=== PATIENT | male | born 1985 | race Hispanic/Latino ===

== ENCOUNTER 2016-12-26 16:19 | Inpatient (IN) | payer OTHER ==
[2016-12-26] MEDS ORDERED: Sodium Chloride 0.9% 1,000 ML IV STA (17:03)
--- NOTE | 2016-12-26 17:06 | ED PDOC ---
Syncope/Near Syncope/Dizziness Time Seen by Provider: 12/26/16 16:53 Chief Complaint (Nursing): Syncope Chief Complaint (Provider): Syncope History Per: Patient History/Exam Limitations: no limitations Onset/Duration Of Symptoms: Days (Today) Additional Complaint(s): Pt. with at a store and got light-headed and palpitations. He then passed out. States was sitting when this happened. Lasted few seconds and then remembers everyone around him. Paramedics came and released. Pt. came with friend. Pt. denies every having any chest pain, dyspnea, weakness, headaches, numbness, tingles at any time. Currently not light-headed. Past Medical History Reviewed: Nursing Documentation, Vital Signs Vital Signs: Last Vital Signs Temp 98.7 F 12/26/16 16:43 Pulse 70 12/26/16 16:43 Resp 18 12/26/16 16:43 BP 146/104 H 12/26/16 16:43 Pulse Ox 99 12/26/16 16:43 - Medical History PMH: Hypercholesterolemia - Surgical History Surgical History: No Surg Hx - Family History Family History: States: [place], CAD - Living Arrangements Living Arrangements: With Family - Social History Current smoker - smoking cessation education provided: Yes Alcohol: Occasional Drugs: Denies - Allergies Allergies/Adverse Reactions: Allergies Allergy/AdvReac Type Severity Reaction Status Date / Time No Known Allergies Allergy Verified 12/26/16 17:02 Review of Systems ROS Statement: Except As Marked, All Systems Reviewed And Found Negative Neurological: Positive for: Dizziness Physical Exam - Reviewed Nursing Documentation Reviewed: Yes Vital Signs Reviewed: Yes - Physical Exam Appears: Positive for: Non-toxic, No Acute Distress Head Exam: Positive for: ATRAUMATIC, NORMAL INSPECTION, NORMOCEPHALIC Skin: Positive for: Normal Color, Warm, DRY Eye Exam: Positive for: EOMI, Normal appearance, PERRL ENT: Positive for: Normal ENT Inspection Neck: Positive for: Normal, Painless ROM Cardiovascular/Chest: Positive for: Regular Rate, Rhythm, Chest Non Tender. Negative for: Edema Respiratory: Positive for: CNT, Normal Breath Sounds Gastrointestinal/Abdominal: Positive for: Normal Exam, Bowel Sounds, Soft. Negative for: Tenderness Back: Positive for: Normal Inspection. Negative for: L CVA Tenderness, R CVA Tenderness Extremity: Positive for: Normal ROM. Negative for: Tenderness, Pedal Edema Neurologic/Psych: Positive for: Alert, string studies director II-XII, Oriented. Negative for: Motor/Sensory Deficits, Facial Droop - Laboratory Results Result Diagrams: 12/26/16 17:30 12/26/16 17:30 Interpretation Of Abn Labs: No acute - ECG ECG: Positive for: Interpreted By Me, Viewed By Me ECG Rhythm: Positive for: ST/T Changes (inferior 2 and avf with inverted t waves / ) O2 Sat by Pulse Oximetry: 99 Pulse Ox Interpretation: Normal - Radiology X-Ray: Read By Radiologist X-Ray Interpretation: No Acute Disease - CT Scan/US ct Other Rad Studies (CT/US): Read By Radiologist Other Rad Interpretation: no acute - Progress ED Course And Treament: 1837: Stable. AAOx3. Pain free. No symptoms. Has multiple risk factors: smoking off and on, high chol, family hx of mi and cad. Drinks etoh frequently. Spoke with Dr. Menchaca. Will admit tele obs and give further orders when pt. reaches floor. Disposition - Clinical Impression Clinical Impression: Syncope, Acute electrocardiogram changes - Patient ED Disposition Is Patient to be Admitted: Yes Counseled Patient/Family Regarding: Studies Performed, Diagnosis - Disposition Disposition Time: 18:58 Condition: FAIR - Pt Status Changed To: Hospital Disposition Of: Observation - POA Present On Arrival: None
--- NOTE | 2016-12-26 17:40 | RAD ---
HISTORY: abnormal ekg COMPARISON: No prior. FINDINGS: LUNGS: Minimal bibasilar atelectasis PLEURA: No significant pleural effusion identified, no pneumothorax apparent. CARDIOVASCULAR: Normal. OSSEOUS STRUCTURES: No significant abnormalities. VISUALIZED UPPER ABDOMEN: Normal. OTHER FINDINGS: None. IMPRESSION: Minimal bibasilar atelectasis
[2016-12-26 17:43] LABS: BASO % 0.5 % (0.0-2.0); EOS # 0.1 K/uL (0.0-0.7); EOS % 1.6 % (0.0-4.0); LYMPH # 1.9 K/uL (1.0-4.3); LYMPH % 25.7 % (20.0-40.0); MEAN CELL VOLUME 95.2 fl (80.0-94.0); MEAN CORPUSCULAR HEMOGLOBIN 32.2 pg (27.0-31.0); MEAN CORPUSCULAR HGB CONC 33.8 g/dL (33.0-37.0); MEAN PLATELET VOLUME 8.1 fl (7.2-11.7); MONO # 0.8 K/uL (0.0-0.8); MONO % 10.4 % (0.0-10.0); NEUT # 4.6 K/uL (1.8-7.0); NEUT % 61.8 % (50.0-75.0); NRBC % 0.1 % (0.0-0.0); RED CELL DISTRIBUTION WIDTH 13.2 % (11.5-14.5); WHITE BLOOD COUNT 7.5 K/uL (4.8-10.8)
[2016-12-26 17:52] LABS: ALB/GLOB RATIO 1.4 (1.0-2.1); ALKALINE PHOSPHATASE 60 U/L (38-126); ALT/SGPT 110 U/L (21-72); AST/SGOT 48 U/L (17-59); BILIRUBIN,TOTAL 0.5 mg/dl (0.2-1.3); BLOOD UREA NITROGEN 18 mg/dl (9-20); CALCIUM 9.3 mg/dL (8.4-10.2); CARBON DIOXIDE 26 mmol/L (22-30); CHLORIDE 104 mmol/L (98-107); GFR AFRICAN-AMERICAN > 60; GLUCOSE,RANDOM 121 mg/dL (75-110); SODIUM 143 mmol/l (132-148); TOTAL PROTEIN 8.1 G/DL (6.3-8.2)
--- NOTE | 2016-12-26 18:06 | CT ---
PROCEDURE: CT HEAD WITHOUT CONTRAST. HISTORY: headache COMPARISON: None available. TECHNIQUE: Axial computed tomography images were obtained through the head/brain without intravenous contrast. Radiation dose: Total exam DLP = 1228.15 mGy-cm. This CT exam was performed using one or more of the following dose reduction techniques: Automated exposure control, adjustment of the mA and/or kV according to patient size, and/or use of iterative reconstruction technique. FINDINGS: HEMORRHAGE: No acute parenchymal, subarachnoid or extra-axial hemorrhage. BRAIN: No mass effect or edema. No atrophy or chronic microvascular ischemic changes. VENTRICLES: No obstructive hydrocephalus. CALVARIUM: Unremarkable. PARANASAL SINUSES: Unremarkable as visualized. No significant inflammatory changes. MASTOID AIR CELLS: Unremarkable as visualized. No inflammatory changes. OTHER FINDINGS: None. IMPRESSION: No acute intracranial hemorrhage.
[2016-12-26 18:10] LABS: PARTIAL THROMBOPLASTIN TIME 30.1 Seconds (25.6-37.1)
[2016-12-26 18:12] LABS: POTASSIUM 3.9 MMOL/L (3.6-5.0)
--- NOTE | 2016-12-27 01:04 | CP.PCM.PCO ---
Subjective - Physician Review Subjective (Free Text): 12/27/16 00:58 paged for pt due to sudden onset of "chest tightness" and feeling anxious 31 y/o male with an unremarkable pmhx admitted for syncope and abnormal ekg seen and examined in ER at bedside, reported sudden onset of diffuse chest tightness with a slight feeling of anxiety/heart racing. Pt denied any cardinal cardiac symptoms such as left arm pain, jaw pain, N/V, diaphoresis. Reported feeling slight heart racing. Denied any calf pain. Denies hx of asthma/ respiratory issues. vitals stable during evaluation EKG done, compared to EKG on admission, no acute changes Troponins ordered CK-MB/D-Dimer ordered as well No acute intervention done as pt was clinically stable and vitals were unchanged , will follow labs
[2016-12-27 08:34] VITALS: RESP 18
[2016-12-27] MEDS ORDERED: Enoxaparin 40 mg Syringe SC SCH (09:00)
--- NOTE | 2016-12-27 11:15 | CARD ---
APPROVED REPORT EXAM: Two-dimensional and M-mode echocardiogram with Doppler and color Doppler. Other Information Quality : GoodRhythm : NSR INDICATION Syncope 2D DIMENSIONS IVSd1.19 (0.7-1.1cm)LVDd4.12 (3.9-5.9cm) LVOT Diameter2.30 (1.8-2.4cm)PWd1.05 (0.7-1.1cm) IVSs1.30 (0.8-1.2cm)LVDs2.80 (2.5-4.0cm) FS (%) 32.1 %PWs1.17 (0.8-1.2cm) M-Mode DIMENSIONS Left Atrium (MM)4.22 (2.5-4.0cm)IVSd0.99 (0.7-1.1cm) Aortic Root3.20 (2.2-3.7cm)LVDd4.58 (4.0-5.6cm) Aortic Cusp Exc.2.01 (1.5-2.0cm)PWd0.99 (0.7-1.1cm) IVSs1.49 cmFS (%) 36 % LVDs2.95 (2.0-3.8cm)PWs1.52 cm Mitral Valve MV E Mpeacrqe00.2cm/sMV DECEL [id number] A Nwscppfj48.8cm/s MV NJW68clO/A ratio1.7MVA (PHT)3.81cm2 TDI Lateral E' Peak V14.26cm/sMedial E' Peak V9.13cm/sE/Lateral E'4.8 E/Medial E'7.5 Pulmonary Valve PV Peak Hnzsljeq598.6cm/s LEFT VENTRICLE The left ventricle is normal size. There is normal left ventricular wall thickness. The left ventricular function is normal. The left ventricular ejection fraction is 55% There is normal LV segmental wall motion. The left ventricular diastolic function is normal. No left ventricle thrombus noted on this study. There is no ventricular septal defect visualized. There is no left ventricular aneurysm. There is no mass noted in the left ventricle. RIGHT VENTRICLE The right ventricle is normal size. There is normal right ventricular wall thickness. The right ventricular systolic function is normal. ATRIA The left atrium size is normal. The right atrium size is normal. The interatrial septum is intact with no evidence for an atrial septal defect. AORTIC VALVE The aortic valve is normal in structure. No aortic regurgitation is present. There is no aortic valvular stenosis. There is no aortic valvular vegetation. MITRAL VALVE The mitral valve is normal in structure. There is no evidence of mitral valve prolapse. There is no mitral valve stenosis. There is no mitral valve regurgitation noted. TRICUSPID VALVE The tricuspid valve is normal in structure. There is no tricuspid valve regurgitation noted. There is no tricuspid valve prolapse or vegetation. There is no tricuspid valve stenosis. PULMONIC VALVE The pulmonary valve is normal in structure. There is no pulmonic valvular regurgitation. There is no pulmonic valvular stenosis. GREAT VESSELS The aortic root is normal in size. The ascending aorta is normal in size. The IVC is normal in size and collapses >50% with inspiration. PERICARDIAL EFFUSION The pericardium appears normal. There is no pleural effusion. <Conclusion> Normal Echocardiogram
--- NOTE | 2016-12-27 11:17 | HP ---
HISTORY OF PRESENT ILLNESS: Mr. Tavares is a 31-year-old male who was admitted via the emergency room following an episode of lightheadedness and palpitations, then passing out while he was shopping. He was released to go home by the paramedics, but brought to the emergency room by his friend. He was found in the emergency room to have abnormal electrocardiogram and advised admission for workup and therapy to rule out acute coronary syndrome. He has a past medical history of hyperlipidemia and had been told in the past that his blood pressure was elevated. He follows up with the radiation therapist and his primary care as an outpatient. FAMILY HISTORY: Remarkable for heart disease in the father. SOCIAL HISTORY: He smokes occasionally, drinks alcohol heavily. 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 PHYSICAL EXAMINATION GENERAL: The patient is alert and oriented. VITAL SIGNS: On admission blood pressure 146/104, pulse of 70, respiratory rate is 18. He is afebrile. O2 sat 99% on room air. SKIN: Shows fair turgor. HEENT: Pupils are equal, reactive to light and accommodation. Mouth shows fair hygiene. JVP flat. LUNGS: Clear. HEART: Regular. No murmurs or gallops. ABDOMEN: Soft, nontender, no organomegaly. EXTREMITIES: Shows no edema or cyanosis. CENTRAL NERVOUS SYSTEM: Exam is grossly intact. The patient appears symptom free at present. LABORATORY DATA: Remarkable for WBC of 7.5, hemoglobin 14.5, platelet count 218,000. Sodium 143, potassium 3.9, BUN of 18, creatinine 0.8, serum glucose 121. EKG nonspecific ST-T changes with regular sinus rhythm. Chest x-ray official report pending. IMPRESSION: Near syncopal episode with palpitation and abnormal EKG, one hospital with acute coronary syndrome. The patient has a history of hyperlipidemia, also history of fatty liver and history of chronic alcohol use. PLAN: Monitor the patient in telemetry. Obtain cardiac evaluation prior to discharge. If cleared by Cardiology, we will discharge the patient to follow up with his radiation therapist in [place]. Would give aspirin, Lovenox, oxygen and continue therapy as ordered. Vick Menchaca MD [facility] # [id number]
--- NOTE | 2016-12-27 11:22 | US ---
PROCEDURE: Duplex ultrasound of the carotid and vertebral arteries. HISTORY: syncope COMPARISON: None available. TECHNIQUE: Grayscale and duplex Doppler evaluation of the cervical carotid and vertebral arteries were performed. The common carotid, carotid bifurcations and cervical ICA and proximal ECA were evaluated. The vertebral arteries were evaluated for gross patency and direction. FINDINGS: RIGHT CAROTID ARTERIES: Common Carotid Artery: Normal. Maximal flow velocity of 92.3 cm/s. Carotid Bifurcation: Normal. Internal Carotid Artery:Normal. Maximal flow velocity of 65.5 cm/s. External Carotid Artery (proximal branches): Normal. Maximal flow velocity of 36.3 cm/s. ICA/CCA Ratio: 0.7 LEFT CAROTID ARTERIES: Common Carotid Artery: Normal. Maximal flow velocity of 91.8 cm/s. Carotid Bifurcation: Normal. Internal Carotid Artery:Normal. Maximal flow velocity of 58.4 cm/s. External Carotid Artery (proximal branches): Normal. Maximal flow velocity of 56.4 cm/s. ICA/CCA Ratio: 0.9 VERTEBRAL ARTERIES: Right Vertebral Artery: Patent. Antegrade flow. Left Vertebral Artery: Patent. Antegrade flow. OTHER FINDINGS: None. IMPRESSION: Right ICA degree of stenosis: Less than 50% Left ICA degree of stenosis: Less than 50% Reference Internal Carotid Artery (ICA) Peak Systolic Velocity (PSV) for above: 1. Less than 50% stenosis less than 125 cm/s peak systolic velocity 2. 50-69% stenosis 125-230cm/s peak systolic velocity 3. Greater than 70% but less than near occlusion greater than 230 cm/s peak systolic velocity
--- NOTE | 2016-12-27 11:23 | CARD ---
APPROVED REPORT EKG Measurement Heart [id number] <Conclusion> Normal sinus rhythm Cannot rule out Anterior infarct, age undetermined Abnormal ECG
--- NOTE | 2016-12-27 11:26 | CARD ---
APPROVED REPORT EKG Measurement Heart [id number] <Conclusion> Sinus tachycardia T wave abnormality, consider inferior ischemia Abnormal ECG
[2016-12-27 11:39] LABS: CHOLESTEROL 213 mg/dL (0-199)
[2016-12-27 11:55] LABS: T4 6.86 ug/dl (5.5-11.0)
[2016-12-27 12:09] LABS: THYROID STIMULATING HORMONE 2.12 mIU/ML (0.46-4.68)
--- NOTE | 2016-12-27 13:58 | CP.PCM.CON ---
Past Patient History - Past Social History Alcohol: Occasional Drugs: Denies - CARDIAC Hx Hypercholesterolemia: Yes - GASTROINTESTINAL Hx Fatty Liver Disease: Yes - PSYCHIATRIC Hx Substance Use: No Meds Allergies/Adverse Reactions: Allergies Allergy/AdvReac Type Severity Reaction Status Date / Time No Known Allergies Allergy Verified 12/26/16 17:02 - Medications Medications: Current Medications Amlodipine Besylate (Norvasc) 2.5 mg PO DAILY [facility] Last Admin: 12/27/16 10:57 Dose: 2.5 mg Aspirin (Aspirin Chewable) 81 mg PO DAILY [facility] Last Admin: 12/27/16 11:00 Dose: 81 mg Atorvastatin Calcium (Lipitor) 10 mg PO DAILY [facility] Last Admin: 12/27/16 11:00 Dose: 10 mg Enoxaparin Sodium (Lovenox) 40 mg SC DAILY [facility] PRN Reason: Protocol Last Admin: 12/27/16 10:58 Dose: 40 mg Results - Vital Signs Recent Vital Signs: Last Vital Signs Temp 97.7 F 12/27/16 08:33 Pulse 86 12/27/16 08:33 Resp 18 12/27/16 08:33 BP 130/90 12/27/16 08:33 Pulse Ox 98 12/27/16 08:33 - Labs Result Diagrams: 12/26/16 17:30 12/26/16 17:30 Labs: Laboratory Results - last 24 hr 12/26/16 12/26/16 12/26/16 17:30 17:30 17:30 WBC 7.5 RBC 4.52 Hgb 14.5 Hct 43.0 MCV 95.2 H MCH 32.2 H MCHC 33.8 RDW 13.2 Plt Count 218 MPV 8.1 Neut % (Auto) 61.8 Lymph % (Auto) 25.7 [place] % (Auto) 10.4 H Eos % (Auto) 1.6 Baso % (Auto) 0.5 Neut # 4.6 Lymph # 1.9 [place] # 0.8 Eos # 0.1 Baso # 0.0 PT 11.2 INR 1.0 APTT 30.1 D-Dimer, Quantitative Sodium 143 Potassium 3.9 Chloride 104 Carbon Dioxide 26 Anion Gap 17 BUN 18 Creatinine 0.8 Est GFR ( Amer) > 60 Est GFR (Non-Af Amer) > 60 Random Glucose 121 H Calcium 9.3 Total Bilirubin 0.5 AST 48 ALT 110 H Alkaline Phosphatase 60 CK-MB (Mass) Troponin I < 0.0120 Total Protein 8.1 Albumin 4.7 Globulin 3.4 Albumin/Globulin Ratio 1.4 Triglycerides Cholesterol LDL Cholesterol Direct HDL Cholesterol Thyroxine (T4) TSH 3rd Generation Urine Opiates Screen Urine Methadone Screen Ur Barbiturates Screen Ur Phencyclidine Scrn Ur Amphetamines Screen U Benzodiazepines Scrn U Oth Cocaine Metabols U Cannabinoids Screen 12/27/16 12/27/16 12/27/16 00:05 01:10 01:10 WBC RBC Hgb Hct MCV MCH MCHC RDW Plt Count MPV Neut % (Auto) Lymph % (Auto) [place] % (Auto) Eos % (Auto) Baso % (Auto) Neut # Lymph # [place] # Eos # Baso # PT INR APTT D-Dimer, Quantitative 159 Sodium Potassium Chloride Carbon Dioxide Anion Gap BUN Creatinine Est GFR ( Amer) Est GFR (Non-Af Amer) Random Glucose Calcium Total Bilirubin AST ALT Alkaline Phosphatase CK-MB (Mass) 0.56 Troponin I < 0.0120 < 0.0120 Total Protein Albumin Globulin Albumin/Globulin Ratio Triglycerides Cholesterol LDL Cholesterol Direct HDL Cholesterol Thyroxine (T4) TSH 3rd Generation Urine Opiates Screen Urine Methadone Screen Ur Barbiturates Screen Ur Phencyclidine Scrn Ur Amphetamines Screen U Benzodiazepines Scrn U Oth Cocaine Metabols U Cannabinoids Screen 12/27/16 12/27/16 10:04 11:00 WBC RBC Hgb Hct MCV MCH MCHC RDW Plt Count MPV Neut % (Auto) Lymph % (Auto) [place] % (Auto) Eos % (Auto) Baso % (Auto) Neut # Lymph # [place] # Eos # Baso # PT INR APTT D-Dimer, Quantitative Sodium Potassium Chloride Carbon Dioxide Anion Gap BUN Creatinine Est GFR ( Amer) Est GFR (Non-Af Amer) Random Glucose Calcium Total Bilirubin AST ALT Alkaline Phosphatase CK-MB (Mass) Troponin I < 0.0120 Total Protein Albumin Globulin Albumin/Globulin Ratio Triglycerides 194 H Cholesterol 213 H LDL Cholesterol Direct 123 HDL Cholesterol 57 Thyroxine (T4) 6.86 TSH 3rd Generation 2.12 Urine Opiates Screen Negative Urine Methadone Screen Negative Ur Barbiturates Screen Negative Ur Phencyclidine Scrn Negative Ur Amphetamines Screen Negative U Benzodiazepines Scrn Negative U Oth Cocaine Metabols Negative U Cannabinoids Screen Negative Assessment & Plan (1) Dyslipidemia Status: Acute (2) Fam hx-ischem heart disease Status: Acute (3) Fatty liver Status: Acute (4) ETOHism Status: Acute (5) Acute electrocardiogram changes Status: Acute (6) Syncope Status: Acute - Assessment and Plan (Free Text) Plan: - PTS ECHO IS NML WITH NO DIASTOLIC DYSFUNCTION, UNLIKELY CORONARY DZ. - SYNCOPAL EVENT IS LIKELY ANXIETY, VS ETOH WITHDRAWAL. GIVEN ALCOHOL INTAKE THIS MAY BE NON ROBERT SVT. SHOULD HAVE HOLTER OUTPT. - MRI AND CAROTIDS READ NML - STABLE FOR D/C TO HOME FROM CARD PERSPECTIVE.
--- NOTE | 2016-12-27 14:36 | MRI ---
PROCEDURE: MRI BRAIN WITHOUT CONTRAST HISTORY: SYNCOPE COMPARISON: Unenhanced Head CT 12/26/2016. TECHNIQUE: Multiplanar, multisequence MR images of the brain were obtained without intravenous contrast enhancement. FINDINGS: HEMORRHAGE: None DWI: No evidence of an acute or early subacute infarction. BRAIN PARENCHYMA: Intrinsic signal throughout the brown and white matter structures above below the tentorium includes appears within normal limits including the brainstem. There is no mass effect, parenchymal edema or loss of the corticomedullary differentiation. Midline brain anatomy appears within normal limits including the corpus callosum, brainstem and craniocervical junction. There is no suspicious extra-axial fluid collection identified. VENTRICLES: Unremarkable. No hydrocephalus. CRANIUM: Unremarkable. ORBITS: Grossly unremarkable. PARANASAL SINUSES/MASTOIDS: Clear VASCULAR SYSTEM: Skull base flow voids intact. OTHER FINDINGS: None. IMPRESSION: Unremarkable non contrast enhanced MRI of the brain. No significant change compared prior head CT 12/26/2016.
[2016-12-27 18:51] VITALS: BP 131/80; PULSE 86; TEMP 97.2; O2SAT 98
--- NOTE | 2016-12-27 19:30 | CP.PCM.CON ---
History of Present Illness - History of Present Illness History of Present Illness: CONSULT DICTATED NEW ONSET NEAR SYNCOPAL ATTACK NO LATERLIZING SIGNS MR/ DOPPLER NEGATIVE EEG CAN BE DONE AN OP FOLLOW UP AN OP Past Patient History - Past Social History Smoking Status: Never Smoked - CARDIAC Hx Hypercholesterolemia: Yes - MUSCULOSKELETAL/RHEUMATOLOGICAL Hx Falls: No - GASTROINTESTINAL Hx Fatty Liver Disease: Yes - PSYCHIATRIC Hx Substance Use: No - ANESTHESIA Hx Anesthesia: No Hx Anesthesia Reactions: No Hx Malignant Hyperthermia: No Has any member of the family had a problem w/ anesthesia?: No Meds Allergies/Adverse Reactions: Allergies Allergy/AdvReac Type Severity Reaction Status Date / Time No Known Allergies Allergy Verified 12/26/16 17:02 - Medications Medications: Current Medications Amlodipine Besylate (Norvasc) 2.5 mg PO DAILY [facility] Last Admin: 12/27/16 10:57 Dose: 2.5 mg Aspirin (Aspirin Chewable) 81 mg PO DAILY [facility] Last Admin: 12/27/16 11:00 Dose: 81 mg Atorvastatin Calcium (Lipitor) 10 mg PO DAILY [facility] Last Admin: 12/27/16 11:00 Dose: 10 mg Enoxaparin Sodium (Lovenox) 40 mg SC DAILY [facility] PRN Reason: Protocol Last Admin: 12/27/16 10:58 Dose: 40 mg Results - Vital Signs Recent Vital Signs: Last Vital Signs Temp 97.2 F L 12/27/16 18:50 Pulse 86 12/27/16 18:50 Resp 18 12/27/16 18:50 BP 131/80 12/27/16 18:50 Pulse Ox 98 12/27/16 18:50 - Labs Result Diagrams: 12/26/16 17:30 12/26/16 17:30 Labs: Laboratory Results - last 24 hr 12/27/16 12/27/16 12/27/16 00:05 01:10 01:10 D-Dimer, Quantitative 159 CK-MB (Mass) 0.56 Troponin I < 0.0120 < 0.0120 Triglycerides Cholesterol LDL Cholesterol Direct HDL Cholesterol Thyroxine (T4) TSH 3rd Generation Urine Opiates Screen Urine Methadone Screen Ur Barbiturates Screen Ur Phencyclidine Scrn Ur Amphetamines Screen U Benzodiazepines Scrn U Oth Cocaine Metabols U Cannabinoids Screen 12/27/16 12/27/16 10:04 11:00 D-Dimer, Quantitative CK-MB (Mass) Troponin I < 0.0120 Triglycerides 194 H Cholesterol 213 H LDL Cholesterol Direct 123 HDL Cholesterol 57 Thyroxine (T4) 6.86 TSH 3rd Generation 2.12 Urine Opiates Screen Negative Urine Methadone Screen Negative Ur Barbiturates Screen Negative Ur Phencyclidine Scrn Negative Ur Amphetamines Screen Negative U Benzodiazepines Scrn Negative U Oth Cocaine Metabols Negative U Cannabinoids Screen Negative
--- NOTE | 2016-12-28 07:15 | CON ---
DATE: 12/27/2016 REASON FOR CONSULTATION: Syncopal attack. CHIEF COMPLAINT: The patient was brought in by paramedics with history of syncopal attack while she was stopping in a furniture store. From a neurological point of view, I was called in to evaluate him for further management. HISTORY OF PRESENT ILLNESS: Mr. Warren Tavares is a 31-year-old normally built, male, who went to [employer] yesterday, came to furniture store, he bought a good furniture for his house. He was excited of the purchase, on his way of paying the bill, he felt lightheaded and he wanted to sit down by himself. He denies any loss of consciousness or no witnessed tonic-clonic activities at the scene. No bowel or bladder incontinence at the scene. No history of bit of tongue. No similar episodes happened in the past. PAST MEDICAL HISTORY: No history of head trauma, no history of any similar attacks happened in the past. He has been suffering from fatty liver with unknown cause. SOCIAL HISTORY: He smokes occasionally. He drinks alcohol heavily at times. He denies using any illicit drugs. He has been working as burner shaft. REVIEW OF SYSTEMS: A 12-point review of systems has been reviewed. From neuro, syncopal attack. MEDICATIONS: Aspirin, atorvastatin, Lovenox, and amlodipine. PHYSICAL EXAMINATION VITAL SIGNS: Blood pressure 131/80, mean arterial pressure of 97, respiratory rate 16, temperature 97.2, pulse rate 82. NECK: Supple. No carotid bruits. HEART: Sounds are regular. CHEST: Fair air entry. EXTREMITIES: No edema in legs. NEUROLOGIC: MENTAL STATUS: The patient is examined in the presence of his friend as well as his . He is awake, alert, and oriented to person, place and time. Speech is clear. Naming, repetition, fluency, comprehension all within normal. No retrograde or antegrade amnesia. No confabulation. CRANIAL NERVES: Visual bhandari intact. Pupils reactive to light. Extraocular movement normal. No nystagmus. No facial sensory deficit. No facial asymmetry. Hearing is normal. Tongue is midline. Good gag. MOTOR EXAMINATION: On outstretched hand with eyes closed, no drift is noted. Power is symmetric on either side. DEEP TENDON REFLEXES: Biceps, brachialis, and triceps 2+, both knees are 2+, both ankles are 1+. Plantars are downgoing. SENSORY EXAMINATION: Grossly intact. No cortical sensory loss. COORDINATION: [id number] testing is intact. GAIT: He could able to march in one line, tandem walking is good. No Romberg sign. WORKUP: CT of the head and MRI of the brain no acute pathology is noted. CAROTID DOPPLER: No significant stenosis. EKG normal sinus rhythm. BLOOD WORKUP: WBC 7.5, hemoglobin 14.5, hematocrit 43.0, platelet 218, PT 11.2, INR 1.20, PTT 30.1. Sodium 143, potassium 3.9, chloride of 104, bicarbonate 26, BUN 18, creatinine 0.8, GFR more than 60. Glucose of 121, ALT 110, AST 48, cholesterol 213, triglyceride 193. Urine tox screen negative. CONCLUSION: Mr. Warren Tavares has been suffering from the following, new onset of syncopal attack, this could probably a vasovagal attack. From a neurological point of view, should be ruled out, however, cardiac points out cardiac arrhythmias and cardiac pathology should be studied. This is more than 24 hour period. The patient is neurologically stable. If cardiology cleared, he can go home, he can be discharged and he can be followed me as outpatient. The electroencephalogram and ambulatory video electroencephalogram, both can be done as outpatient. Trenton Ortiz MD
--- NOTE | 2016-12-29 10:33 | CP.PCM.DIS ---
Provider - Provider Date of Admission: 12/27/16 16:30 Attending physician: Vick Menchaca MD Time Spent in preparation of Discharge (in minutes): 30 Diagnosis - Discharge Diagnosis (1) Acute electrocardiogram changes Status: Acute (2) Dyslipidemia Status: Acute (3) Fam hx-ischem heart disease Status: Acute (4) Fatty liver Status: Acute (5) Syncope Status: Acute Hospital Course - Lab Results Lab Results: Most Recent Lab Values WBC 7.5 K/uL (4.8-10.8) 12/26/16 17:30 RBC 4.52 Mil/uL (4.40-5.90) 12/26/16 17:30 Hgb 14.5 g/dL (12.0-18.0) 12/26/16 17:30 Hct 43.0 % (35.0-51.0) 12/26/16 17:30 MCV 95.2 fl (80.0-94.0) H 12/26/16 17:30 MCH 32.2 pg (27.0-31.0) H 12/26/16 17:30 MCHC 33.8 g/dL (33.0-37.0) 12/26/16 17:30 RDW 13.2 % (11.5-14.5) 12/26/16 17:30 Plt Count 218 K/uL (130-400) 12/26/16 17:30 MPV 8.1 fl (7.2-11.7) 12/26/16 17:30 Neut % (Auto) 61.8 % (50.0-75.0) 12/26/16 17:30 Lymph % (Auto) 25.7 % (20.0-40.0) 12/26/16 17:30 [place] % (Auto) 10.4 % (0.0-10.0) H 12/26/16 17:30 Eos % (Auto) 1.6 % (0.0-4.0) 12/26/16 17:30 Baso % (Auto) 0.5 % (0.0-2.0) 12/26/16 17:30 Neut # 4.6 K/uL (1.8-7.0) 12/26/16 17:30 Lymph # 1.9 K/uL (1.0-4.3) 12/26/16 17:30 [place] # 0.8 K/uL (0.0-0.8) 12/26/16 17:30 Eos # 0.1 K/uL (0.0-0.7) 12/26/16 17:30 Baso # 0.0 K/uL (0.0-0.2) 12/26/16 17:30 PT 11.2 Seconds (9.8-13.1) 12/26/16 17:30 INR 1.0 (0.9-1.2) 12/26/16 17:30 APTT 30.1 Seconds (25.6-37.1) 12/26/16 17:30 D-Dimer, Quantitative 159 ng/mlDDU (0-230) 12/27/16 01:10 Sodium 143 mmol/l (132-148) 12/26/16 17:30 Potassium 3.9 MMOL/L (3.6-5.0) 12/26/16 17:30 Chloride 104 mmol/L (98-107) 12/26/16 17:30 Carbon Dioxide 26 mmol/L (22-30) 12/26/16 17:30 Anion Gap 17 (10-20) 12/26/16 17:30 BUN 18 mg/dl (9-20) 12/26/16 17:30 Creatinine 0.8 mg/dL (0.8-1.5) 12/26/16 17:30 Est GFR ( Amer) > 60 12/26/16 17:30 Est GFR (Non-Af Amer) > 60 12/26/16 17:30 Random Glucose 121 mg/dL (75-110) H 12/26/16 17:30 Calcium 9.3 mg/dL (8.4-10.2) 12/26/16 17:30 Total Bilirubin 0.5 mg/dl (0.2-1.3) 12/26/16 17:30 AST 48 U/L (17-59) 12/26/16 17:30 ALT 110 U/L (21-72) H 12/26/16 17:30 Alkaline Phosphatase 60 U/L (38-126) 12/26/16 17:30 CK-MB (Mass) 0.56 ng/mL (0.0-3.38) 12/27/16 01:10 Troponin I < 0.0120 ng/mL (0.00-0.120) 12/27/16 11:00 Total Protein 8.1 G/DL (6.3-8.2) 12/26/16 17:30 Albumin 4.7 g/dL (3.5-5.0) 12/26/16 17:30 Globulin 3.4 gm/dL (2.2-3.9) 12/26/16 17:30 Albumin/Globulin Ratio 1.4 (1.0-2.1) 12/26/16 17:30 Triglycerides 194 mg/DL (0-149) H 12/27/16 11:00 Cholesterol 213 mg/dL (0-199) H 12/27/16 11:00 LDL Cholesterol Direct 123 mg/dL (0-129) 12/27/16 11:00 HDL Cholesterol 57 MG/DL (30-70) 12/27/16 11:00 Thyroxine (T4) 6.86 ug/dl (5.5-11.0) 12/27/16 11:00 TSH 3rd Generation 2.12 mIU/ML (0.46-4.68) 12/27/16 11:00 Urine Opiates Screen Negative (NEGATIVE) 12/27/16 10:04 Urine Methadone Screen Negative (NEGATIVE) 12/27/16 10:04 Ur Barbiturates Screen Negative (NEGATIVE) 12/27/16 10:04 Ur Phencyclidine Scrn Negative (NEGATIVE) 12/27/16 10:04 Ur Amphetamines Screen Negative (NEGATIVE) 12/27/16 10:04 U Benzodiazepines Scrn Negative (NEGATIVE) 12/27/16 10:04 U Oth Cocaine Metabols Negative (NEGATIVE) 12/27/16 10:04 U Cannabinoids Screen Negative (NEGATIVE) 12/27/16 10:04 - Hospital Course Hospital Course: CLINICALLY IMPROVED ALL WORKUP WAS NON-REVEALING Discharge Exam - Head Exam Head Exam: ATRAUMATIC, NORMAL INSPECTION, NORMOCEPHALIC - Eye Exam Eye Exam: EOMI, Normal appearance, PERRL Pupil Exam: NORMAL ACCOMODATION, PERRL - GI/Abdominal Exam GI & Abdominal Exam: Normal Bowel Sounds - Rectal Exam Rectal Exam: NORMAL INSPECTION - Neurological Exam Neurological exam: Alert, CN II-XII Intact, Normal Gait, Oriented x3, Reflexes Normal - Psychiatric Exam Psychiatric exam: Normal Affect, Normal Mood - Skin Skin Exam: Dry, Intact, Normal Color, Warm Discharge Plan - Follow Up Plan Condition: FAIR Disposition: HOME/ ROUTINE Patient education suggested?: Yes Instructions: Electroencephalogram (DC), Syncope (DC), Near Syncope (ED)
== END 2016-12-27 19:40 | disposition home or self-care (01) | DRG 312 ==
LOC: H.ER 16:19 → H.ERHOLD 19:03 → OBSVTOIN 12-27 16:30 → H.MEDSURG1 12-27 18:30
PROVIDERS: ADMIT Internal Medicine Pulmonary Disease; ATTEND Internal Medicine Pulmonary Disease
DX: R55 Syncope and collapse (principal); K76.0 Fatty (change of) liver, not elsewhere classified; R94.31 Abnormal electrocardiogram [ECG] [EKG]; E78.00 Pure hypercholesterolemia, unspecified; E78.5 Hyperlipidemia, unspecified; F17.200 Nicotine dependence, unspecified, uncomplicated